=== PATIENT | female | born 1980 | race Caucasian/White ===

== ENCOUNTER → 2016-09-13 | Outpatient (CLI) | payer MEDICAID ==
[~2016-09-13] MED LIST: IBUP-232 PO; LABE100T2 PO; LEVO.2 PO; MACR100C2 PO; PREN1TAB63
== END ==
LOC: CDED 10:26
PROVIDERS: ATTEND Obstetrics & Gynecology
DX: O24.419 Gestational diabetes mellitus in pregnancy, unspecified control (principal)
CPT/HCPCS: 97802

== ENCOUNTER 2016-10-07 16:18 | Inpatient (IN) | payer MEDICAID ==
[2016-10-07] VITALS (17 sets, daily range): BP systolic 140–168; BP diastolic 71–96; PULSE 75–89; RESP 18; TEMP 98
[~2016-10-07] VITALS: Ht 160 cm; Wt 98.0 kg
[~2016-10-07 16:18] MED LIST changes: +DIPHTH/TETANUS/ACEL PERTUSSIS (BOOSTER) 0.5 ML VIAL/PFS IM ONE; -IBUP-232 PO; -LABE100T2 PO; -LEVO.2 PO; +MEASLES, MUMPS, RUBELLA VACCINE 0.5 ML VIAL SQ ONE; -PREN1TAB63
[2016-10-07] MEDS ORDERED: LACTATED RINGER'S 1000 ML INJ 1,000 ML IV PRN (16:33)
--- NOTE | 2016-10-07 16:41 | HHI.HP ---
HPI Chief Complaint oligohydramnios, iol Date Seen: Oct 07, 2016 Travel History International Travel<30 Days: No Contact w/Intl Traveler<30Days: [place] Traveled to: Travel to [place] in December History of Present Illness HPI 36 yo with iup at 37 weeks seen today for testing for h/o CHTN and GDM. BPP noted oligohydramnios with MUKESH of 4; rest of bpp normal. She is feeling increased pelvic pressure. Irreg ctx, no vb or lof. History Past Medical History Narrative Medical CHTN. hyperlipidemia Obstetric History Obstetric History 2 ftsvd Past Surgical History Surgical History: No Previous Surgery Family History Family History: Negative Social History Alcohol Use: No Tobacco Use: No Substance Abuse: No Allergies-Medications (Allergen,Severity, Reaction): Coded Allergies: No Known Allergies (Unverified , 10/07/16) Home Meds Active Scripts Nitrofurantoin Monohydrate Macrocrystals (Macrobid)100 Mg [id number] Mg PO BID 7 Days Ref 0 Prov:Harley Martínez MD 04/06/16 Review of Systems General / Constitutional: No: Fever, Weight Gain, Chills, Other Eyes: No: Diploplia, Blurred Vision, Visual changes, Pain, Photophobia HENT: No: Headaches, Vertigo, Lightheadedness Cardiovascular: No: Irregular Rhythm, Chest Pain or Discomfort, Palpitations, Tachycardia, Syncope, Varicosities, Edema, Cyanosis Respiratory: No: Cough, Short of Breath, Other Gastrointestinal: No: Nausea, Vomiting, Diarrhea Genitourinary: No: Decreased Urinary Output, Oliguria Musculoskeletal: No: Limited ROM, Weakness, Cramping, Edema, Pain Skin: No Rash, No Itching, No Dryness, No Lumps, No Change in Pigmentation, No Change in Nails, No Alopecia, No Lesions Neurologic: No: Weakness, Dizziness, Syncope, Focal Abnormalities, Coordination Problem, Headache, Slurred Speech, Seizures Psychiatric: No: Depression, Suicidal Ideations, Homicidal Ideation Endocrine: No: Heat Intolerance, Cold Intolerance, Polydipsia, Polyuria, Other Physical Exam Narrative GENERAL: Well-nourished, well-developed patient. SKIN: Warm and dry. HEAD: Normocephalic and atraumatic. EYES: No scleral icterus. No injection or drainage. ENT: No nasal drainage noted. Mucous membranes pink. Airway patent. NECK: Supple, trachea midline. No JVD. CARDIOVASCULAR: Regular rate and rhythm without murmurs, gallops, or rubs. RESPIRATORY: Breath sounds equal bilaterally. No accessory muscle use. ABDOMEN/GI: Abdomen soft, non-tender, bowel sounds present, no rebound, no guarding Gravid to 40 weeks size GENITOURINARY: External Genitalia: intact and normal in appearance BUS glands: [-] Cervix:3/50/-3 Presentation:ceph Membranes: [intact Uterine Contractions: [-] FHT's: Pending EXTREMITIES: No cyanosis or edema. BACK: Nontender without obvious deformity. No CVA tenderness. NEUROLOGICAL: Awake and alert. Motor and sensory grossly within normal limits. Five out of 5 muscle strength in all muscle groups. Normal speech. Data Data Vital Signs Reviewed: Yes Orders Admit To Inpatient (10/07/16 ) Vital Signs (Adult) .Per protocol (10/07/16 16:33) Activity Oob Ad Qing (10/07/16 16:33) Heart (10/07/16 16:33) Amnioinfusion (10/07/16 16:33) Urinary Catheter Management .ONCE (10/07/16 16:33) Diet Npo (10/07/16 Dinner) Lactated Ringer's 1000 Ml Inj (Lr 1000 M (10/07/16 16:33) Lactated Ringer's 1000 Ml Inj (Lr 1000 M (10/07/16 16:33) Sodium Chlorid 0.9% 500 Ml Inj (Ns 500 M (10/07/16 16:45) Sodium Chlor 0.9% 1000 Ml Inj (Ns 1000 M (10/07/16 16:53) Lidocaine 1% Inj (50 Ml) (Xylocaine 1% I (10/07/16 16:45) Citric Acid-Sodium Citrate Liq (Bicitra (10/07/16 16:45) Ondansetron Inj (Zofran Inj) (10/07/16 16:45) Fentanyl Inj (Fentanyl Inj) (10/07/16 16:45) Fentanyl Inj (Fentanyl Inj) (10/07/16 16:45) Complete Blood Count With Diff (10/07/16 16:33) Hold Clot (10/07/16 16:33) Abo/Rh Blood Type (10/07/16 16:33) Urinalysis - C+S If Indicated (10/07/16 16:33) Resp Oxygen Non Rebreathe Mask (10/07/16 ) ^ Epidural / Intrathecal Infus (10/07/16 16:33) Oxytocin 30 Units-500ml Premix (Pitocin (10/07/16 16:45) Lidocaine 1% Inj (50 Ml) (Xylocaine 1% I (10/07/16 16:45) Light Mineral Oil (Muri-Lube Oil) (10/07/16 16:45) ^ Non Stress Test (10/07/16 16:33) Response To Medication .Post New Med Administration, Reaction (10/07/16 16:33) ^ Discontinue Medication (10/07/16 16:33) Oxytocin Drip (2-2-30) (10/07/16 16:45) Inpatient Certification (10/07/16 ) Specimen To Be Collected PRN (10/07/16 16:33) Assessment/Plan Problem List: (1) Chronic hypertension affecting (2) Gestational diabetes mellitus (3) Morbid obesity (4) Advanced maternal age in multigravida (5) Rubella non-immune status, antepartum (6) Oligohydramnios antepartum Assessment and Plan 36 yo with iuop at 38 wk today with oligohydramnios on u/s today 1) IOL for oligohydramnios- favorable cervix, will start pitocin 2) CHTN- on labetalol 100mg bid. Had nl pih labs last week. 3) Gestational DM- good control 4) Hypothyroidism- on syntrhoid 150 micrograms 5) AMA- neg cfDNA and msAFP 6) Fetus reassuring testing in office today, cephalic, 5 lb 7 oz last week Discharge Planning home ppd 2-3 Eden Wayne MD Oct 07, 2016 16:41
[2016-10-07] MEDS ORDERED: CITRIC ACID-SODIUM CITRATE LIQ 30 ML UDC PO SCH (16:45)
[2016-10-07] MEDS ORDERED: LIDOCAINE HCL 1% 50 ML VIAL INFIL PRN (16:45)
[2016-10-07] MEDS ORDERED: ONDANSETRON HCL 4 MG/2 ML VIAL IV PRN (16:45)
[2016-10-07] MEDS ORDERED: MINERAL OIL 10 ML VIAL TOPICAL PRN (16:45)
[2016-10-07] MEDS ORDERED: LIDOCAINE HCL 1% 50 ML VIAL I-DERMAL PRN (16:45)
[2016-10-07] MEDS ORDERED: SODIUM CHLORID 0.9% 500 ML INJ 500 ML IV PRN (16:45)
[2016-10-07] MEDS ORDERED: OXYTOCIN 30 UNITS-500ML PREMIX 500 ML IV SCH (16:45)
[2016-10-07] MEDS ORDERED: OXYTOCIN 30 UNITS-500ML PREMIX 500 ML IV ONE (16:45)
[2016-10-07] MEDS ORDERED: SODIUM CHLOR 0.9% 1000 ML INJ 1,000 ML IV PRN (16:53)
[2016-10-07] MEDS ORDERED: LEVO.2 PO (16:56)
[2016-10-07] MEDS ORDERED: PREN1TAB63 (16:56)
[2016-10-07] MEDS ORDERED: LABE100T2 PO (16:56)
[2016-10-07] MEDS ORDERED: LACTATED RINGER'S 1000 ML INJ 1,000 ML IV SCH (17:00)
[2016-10-07] MEDS ORDERED: LEVOTHYROXINE SODIUM 200 MCG TAB PO ONE (17:15)
[2016-10-07 17:18] LABS: AUTOMATED NEUTROPHIL # 7.5 TH/MM3 (1.8-7.7); BASOPHIL % 0.3 % (0.0-2.0); EOSINOPHIL # 0.1 TH/MM3 (0-0.4); EOSINOPHIL % 0.7 % (0.0-4.0); HEMATOCRIT 36.1 % (35.0-46.0); HEMO FLAGS DIFF FINAL; LYMPH % 17.8 % (9.0-44.0); LYMPHOCYTE # 1.8 TH/MM3 (1.0-4.8); MEAN CELL VOLUME 82.6 FL (80.0-100.0); MEAN CORPUSCULAR HEMOGLOBIN 26.3 PG (27.0-34.0); MEAN CORPUSCULAR HGB CONC 31.9 % (32.0-36.0); MONO % 6.2 % (0.0-8.0); PLATELET COUNT 271 TH/MM3 (150-450); RED BLOOD COUNT 4.37 MIL/MM3 (4.00-5.30); RED CELL DISTRIBUTION WIDTH 16.7 % (11.6-17.2); WHITE BLOOD COUNT 10.1 TH/MM3 (4.0-11.0)
[2016-10-07 20:04] LABS: BACTERIA, URINE MOD /hpf; BLOOD, URINE MOD (NEG); COMMENT (UR) CULTURE INDICATED; CULTURE IF INDICATED CULTURE INDICATED; GLUCOSE,URINE NEG (NEG); KETONE, URINE 10 mg/dL (NEG); NITRITE,URINE NEG (NEG); PH, URINE 6.5 (5.0-8.5); SQUAMOUS EPITHELIAL CELL URINE 1 /hpf (0-5); URINE COLOR YELLOW (YELLW/STRAW)
[2016-10-07] MEDS: LABETALOL HCL 100 MG TAB PO SCH (20:27)
[2016-10-07 21:14] LABS: ANION GAP 13 MEQ/L (5-15); AST (GOT) 17 U/L (15-37); BICARBONATE 20.3 MEQ/L (21.0-32.0); BLOOD UREA NITROGEN 5 MG/DL (7-18); CHLORIDE 105 MEQ/L (98-107); GLOMERULAR FILTRATION RATE 429 ML/MIN (>89); POTASSIUM 3.5 MEQ/L (3.5-5.1); SODIUM (NA) 138 MEQ/L (136-145); URIC ACID 3.6 MG/DL (2.6-6.0)
[2016-10-07 21:18] LABS: ALKALINE PHOSPHATASE 131 U/L (45-117); ALT (GPT) 21 U/L (10-53); TOTAL BILIRUBIN ADULT 0.2 MG/DL (0.2-1.0)
--- NOTE | 2016-10-07 21:37 | PD.OB.DELI ---
Delivery Date: Oct 07, 2016 Anesthesia: None Episiotomy: None Vaginal Delivery: Normal Presentation: Occiput anterior Nuchal Cord: None Delayed cord clamping (45 sec): Yes : Male One Minute : 8 Five Minute : 9 Weight: 2645g Placenta: Spontaneous delivery Laceration: No lacerations Additional Information ebl 100ml Eden Wayne MD Oct 07, 2016 21:37
[2016-10-07] MEDS ORDERED: ZOLPIDEM TARTRATE 5 MG TAB PO PRN (21:45)
[2016-10-07] MEDS ORDERED: ALUMINUM/MAGNESIUM/SIMETH 30 ML CUP PO PRN (21:45)
[2016-10-07] MEDS ORDERED: BENZOCAINE 20% TOPICAL SPRAY 60 ML CAN TOPICAL PRN (21:45)
[2016-10-07] MEDS ORDERED: ACETAMINOPHEN 325 MG TAB PO PRN (21:45)
[2016-10-07] MEDS ORDERED: WITCH HAZEL 50%/GLYCERIN 12.5% 40 PAD JAR TOPICAL PRN (21:45)
[2016-10-07] MEDS ORDERED: ONDANSETRON ODT 4 MG TAB PO PRN (21:45)
[2016-10-07] MEDS ORDERED: DOCUSATE SODIUM 50 MG/SENNA 8.6 MG TAB PO PRN (21:45)
[2016-10-07] MEDS ORDERED: SODIUM CHLORIDE 0.9% FLUSH 10 ML FLUSH IV FLUSH PRN (21:45)
[2016-10-08 00:03] VITALS: BP 135/71; PULSE 80; RESP 18; TEMP 98.7
[2016-10-08] MEDS: LEVOTHYROXINE SODIUM 200 MCG TAB PO SCH (06:47)
[2016-10-08] MEDS: IBUPROFEN 600 MG TAB PO PRN (07:39)
--- NOTE | 2016-10-08 08:07 | HHI.OB ---
Subjective Post Day: 1 Remarks PPD#1; Doing well, no c/o, denies BV,KRISHNAMURTHY,N/V Objective Vitals/I&O Vital Signs Date Time Temp Pulse Resp B/P Pulse Ox O2 Delivery O2 Flow Rate FiO2 10/08/16 00:03 98.7 80 18 135/71 10/07/16 22:15 18 10/07/16 22:00 18 10/07/16 21:47 75 160/96 10/07/16 21:43 18 10/07/16 21:40 88 153/71 10/07/16 21:05 18 10/07/16 21:04 89 168/85 10/07/16 20:54 18 10/07/16 19:51 18 10/07/16 19:37 79 152/85 10/07/16 19:37 18 10/07/16 19:15 18 10/07/16 18:59 77 140/92 10/07/16 18:58 98.0 10/07/16 18:57 18 10/07/16 18:22 80 18 157/90 10/07/16 16:42 98.0 18 10/07/16 16:33 86 160/89 Objective Remarks GENERAL: Well-nourished, well-developed patient. CARDIOVASCULAR: Regular rate and rhythm without murmurs, gallops, or rubs. RESPIRATORY: Breath sounds equal bilaterally. No accessory muscle use. ABDOMEN/GI: Abdomen soft, non-tender. Fundus: Firm, non-tender at umbilicus. GENITOURINARY: Light to moderate bleeding. EXTREMITIES: No cyanosis or edema, non-tender, without signs of DVT. Medications and IVs Current Medications Medications (Trade) Dose Ordered Sig/Raudel Route Start Time Stop Time Status Last Admin (Trandate) 100 mg Q12HR PO 10/07/16 21:00 10/07/16 20:27 (Synthroid) 200 mcg DAILY@0600 PO 10/08/16 06:00 10/08/16 06:47 (NS Flush) 2 ml BID IV FLUSH 10/08/16 09:00 (NS Flush) 2 ml UNSCH PRN IV FLUSH 10/07/16 21:45 (Tylenol) 650 mg Q4H PRN PO 10/07/16 21:45 (Motrin) 600 mg Q6H PRN PO 10/07/16 21:45 10/08/16 07:39 (Americaine 20% Top Spr) 1 spray Q4H PRN TOPICAL 10/07/16 21:45 (Tucks Pads) 1 applic QID PRN TOPICAL 10/07/16 21:45 (Cely-Colace) 2 tab Q12H PRN PO 10/07/16 21:45 (Ambien) 5 mg HS PRN PO 10/07/16 21:45 (Mag-Al Plus Susp Liq) 15 ml Q8H PRN PO 10/07/16 21:45 (Zofran Odt) 4 mg Q6H PRN PO 10/07/16 21:45 Assessment/Plan Problem List: (1) Chronic hypertension affecting (2) Gestational diabetes mellitus (3) Morbid obesity (4) Advanced maternal age in multigravida (5) Rubella non-immune status, antepartum (6) Oligohydramnios antepartum Assessment and Plan 36 yo , PPD#1,, PIDH, BP stable,asymptomatic Discharge Planning home ppd 2-3 Attending Attestation seen by Eddie Mccoy MD Oct 08, 2016 08:07
[2016-10-08] MEDS ORDERED: SODIUM CHLORIDE 0.9% FLUSH 10 ML FLUSH IV FLUSH SCH (09:00)
[2016-10-08] MEDS: LABETALOL HCL 100 MG TAB PO SCH ×2 (10:31→21:00)
[2016-10-08 21:11] VITALS: PULSE 89; RESP 20; TEMP 98.2
[2016-10-08 22:00] VITALS: BP 147/87
[2016-10-09] MEDS: IBUPROFEN 600 MG TAB PO PRN (02:27)
--- NOTE | 2016-10-09 05:34 | HHI.DCPOC ---
Discharge Care Plan Diagnosis: (1) (spontaneous vaginal delivery) Your Health Problems Are: Vaginal delivery Report Symptoms to Your Doctor -Temperature above 100.5 degrees -Redness, of incision or excessive or foul smelling drainage -Unusual pain or calf pain -Increased vaginal bleeding -Painful or difficulty urinating -Feelings of extreme sadness or anxiety after 2 weeks Goals to Promote Your Health * To prevent worsening of your condition and complications * To maintain your health at the optimal level Directions to Meet Your Goals Take your medications as prescribed Follow your dietary instruction Follow activity as directed Ensure plenty of rest for recovery Drink fluids for hydration Keep your appointments as scheduled Take your immunizations and boosters as scheduled If your symptoms worsen call your PCP, if no PCP go to Urgent Care Center or Emergency Room Smoking is Dangerous to Your Health. Avoid second hand smoke Call the 24-hour crisis hotline for domestic abuse at Kailyn Arias MD Oct 09, 2016 05:34
[2016-10-09] MEDS: LEVOTHYROXINE SODIUM 200 MCG TAB PO SCH (06:05)
[2016-10-09 08:00] VITALS: BP 142/87; PULSE 75; RESP 16; TEMP 97.6
--- NOTE | 2016-10-09 08:02 | HHI.OB ---
Subjective Post Day: 2 Remarks s/p uncomplicated Objective Vitals/I&O Vital Signs Date Time Temp Pulse Resp B/P Pulse Ox O2 Delivery O2 Flow Rate FiO2 10/09/16 03:27 18 10/08/16 22:00 147/87 10/08/16 21:11 98.2 10/08/16 21:11 89 20 Objective Remarks GENERAL: Well-nourished, well-developed patient. CARDIOVASCULAR: Regular rate and rhythm without murmurs, gallops, or rubs. RESPIRATORY: Breath sounds equal bilaterally. No accessory muscle use. ABDOMEN/GI: Abdomen soft, non-tender. Fundus: Firm, non-tender at umbilicus. GENITOURINARY: Light to moderate bleeding. EXTREMITIES: No cyanosis or edema, non-tender, without signs of DVT. Medications and IVs Current Medications Medications (Trade) Dose Ordered Sig/Raudel Route Start Time Stop Time Status Last Admin (Trandate) 100 mg Q12HR PO 10/07/16 21:00 10/08/16 21:00 (Synthroid) 200 mcg DAILY@0600 PO 10/08/16 06:00 10/09/16 06:05 (NS Flush) 2 ml BID IV FLUSH 10/08/16 09:00 (NS Flush) 2 ml UNSCH PRN IV FLUSH 10/07/16 21:45 (Tylenol) 650 mg Q4H PRN PO 10/07/16 21:45 (Motrin) 600 mg Q6H PRN PO 10/07/16 21:45 10/09/16 02:27 (Americaine 20% Top Spr) 1 spray Q4H PRN TOPICAL 10/07/16 21:45 (Tucks Pads) 1 applic QID PRN TOPICAL 10/07/16 21:45 (Cely-Colace) 2 tab Q12H PRN PO 10/07/16 21:45 (Ambien) 5 mg HS PRN PO 10/07/16 21:45 (Mag-Al Plus Susp Liq) 15 ml Q8H PRN PO 10/07/16 21:45 (Zofran Odt) 4 mg Q6H PRN PO 10/07/16 21:45 Assessment/Plan Problem List: (1) (spontaneous vaginal delivery) (2) Chronic hypertension affecting (3) Gestational diabetes mellitus (4) Morbid obesity (5) Advanced maternal age in multigravida (6) Rubella non-immune status, antepartum (7) Oligohydramnios antepartum Assessment and Plan 36 yo , PPD#2,, GDM, CHTN, BP stable, asymptomatic d/c to home today with 1 wk BP check in office Discharge Planning home today Kailyn Arias MD Oct 09, 2016 08:02
[2016-10-09] MEDS ORDERED: IBUP-232 PO (08:03)
[2016-10-09] MEDS: LABETALOL HCL 100 MG TAB PO SCH (08:42)
== END 2016-10-09 10:00 | disposition home or self-care (01) | DRG 774 ==
LOC: H2EA 16:18 → H1EA 23:20
PROVIDERS: ADMIT Obstetrics & Gynecology; ATTEND Obstetrics & Gynecology
PROC: 10E0XZZ Delivery of Products of Conception, External Approach (ICD-10-PCS; principal; 2016-10-07)
PROC: 3E033VJ Introduction of Other Hormone into Peripheral Vein, Percutaneous Approach (ICD-10-PCS; 2016-10-07)
DX: O41.03X0 Oligohydramnios, third trimester, not applicable or unspecified (principal); O10.92 Unspecified pre-existing hypertension complicating childbirth; O24.429 Gestational diabetes mellitus in childbirth, unspecified control; O09.523 Supervision of elderly multigravida, third trimester; O99.214 Obesity complicating childbirth; E66.01 Morbid (severe) obesity due to excess calories; Z68.38 Body mass index [BMI] 38.0-38.9, adult; O99.284 Endocrine, nutritional and metabolic diseases complicating childbirth; E03.9 Hypothyroidism, unspecified; E78.5 Hyperlipidemia, unspecified; Z37.0 Single live birth; Z3A.37 37 weeks gestation of pregnancy
CPT/HCPCS: 59025; 80053; 81001; 84550; 85025; 86900; 86901; 87086; 90707; 90715; J2590; J3010; J7120